=== PATIENT | female | born 1970 | race African-American/Black ===

== ENCOUNTER 2017-12-22 04:28 | Inpatient (IN) | payer OTHER ==
[~2017-12-22] VITALS: Ht 170.2 cm; Wt 68.0 kg
[2017-12-22 04:32] VITALS: Ht 170.2 cm; Wt 68.0 kg
[2017-12-22 06:43] LABS: CALCIUM 10.7 mg/dL (8.5-10.1); CARBON DIOXIDE 23.9 mmol/L (21-32); CHLORIDE SERUM 105 mmol/L (98-107); CREATININE SERUM 0.9 mg/dL (0.6-1.0); GFR1 > 60 mL/min; GLUCOSE SERUM 85 mg/dL (74-106); SODIUM SERUM 140 mmol/L (136-145)
[2017-12-22 06:48] LABS: ALBUMIN 4.5 g/dL (3.4-5.0); ALKALINE PHOSPHATASE 176 U/L (46-116); ALT/SGPT 39 U/L (14-59); AST/SGOT 50 U/L (15-37); BILIRUBIN TOTAL 2.34 mg/dL (0.20-1.00); LIPASE 145 IU/L (73-393); TOTAL PROTEIN, SERUM 8.1 g/dL (6.4-8.2)
[2017-12-22 07:04] LABS: microscopic required? NO
[2017-12-22] MEDS ORDERED: NATURE'S BLEND F1 MG PO (07:12)
[2017-12-22] MEDS ORDERED: HYD500 PO (07:13)
[2017-12-22] MEDS ORDERED: FLONS (07:13)
[2017-12-22] MEDS ORDERED: ALLEGRA ALLERG180 M1 PO (07:14)
[2017-12-22] MEDS ORDERED: PERCOCET1 TA5 PO (07:15)
[2017-12-22] MEDS ORDERED: FLE10 PO (07:16)
[2017-12-22] MEDS ORDERED: PEPCID20 MG PO (07:16)
[2017-12-22] MEDS ORDERED: JADENU90 MG PO (07:17)
[2017-12-22 07:27] LABS: BASOPHIL % 0.7 % (0-2); RED BLOOD CELLS 2.53 M/mm3 (4.10-5.10)
[2017-12-22 07:32] LABS: RED CELL DISTRIBUTION WIDTH 18.4 % (11.5-14.5)
[2017-12-22 07:50] LABS: UA SPECIFIC GRAVITY <=1.005 (1.005-1.035); urine erythrocyte NEGATIVE (NEGATIVE)
[2017-12-22 08:18] LABS: rbc morphology (normal/abnorm) ABNORMAL (NORMAL)
[2017-12-22 08:19] LABS: ovalocyte/elliptocyte 2+; target cell (codocyte) 2+
[2017-12-22 08:29] LABS: PLATELET COUNT 568 x10^3mcL (130-400)
[2017-12-22 09:07] LABS: T3 TOTAL 0.81 ng/mL
[2017-12-22 09:12] LABS: FREE T4 0.87 ng/dL (0.76-1.46); FREE THYROXINE INDEX 2.2 ug/dL (1.4-4.5); T4(THYROXINE) 6.2 ug/dL (4.7-13.3)
[2017-12-22 09:41] VITALS: BP 136/81
[2017-12-22 09:46] LABS: MAGNESIUM 2.2 mg/dL (1.8-2.4); PHOSPHOROUS 3.3 mg/dL (2.5-4.9)
[2017-12-22 10:40] LABS: AMPHETAMINE QUAL UR NONE DETECTED (NEG <=1000)
== END 2017-12-22 11:00 | disposition left against medical advice (07) | DRG 812 ==
LOC: ED 04:28 → DU 06:16
PROVIDERS: Emergency Medicine; Family Medicine
DX: D57.00 Hb-SS disease with crisis, unspecified (principal); E83.52 Hypercalcemia; D72.829 Elevated white blood cell count, unspecified; F43.9 Reaction to severe stress, unspecified; Z68.26 Body mass index [BMI] 26.0-26.9, adult; Z79.891 Long term (current) use of opiate analgesic
CPT/HCPCS: 83880; 84439; J2270; J7030